=== PATIENT | male | born 1975 | race Two or more races ===

== ENCOUNTER 2023-08-04 15:13 | Outpatient (RCR) | payer MEDICAID, SELFPAY | END 2023-08-26 23:59 | disposition home or self-care (01) | LOC: CPTX 15:13 | PROVIDERS: PCP Nurse Practitioner; Referring Provider Nurse Practitioner; Visit Provider Nurse Practitioner | DX: Z53.9 Procedure and treatment not carried out, unspecified reason (principal) ==